=== PATIENT | male | born 1970 | race Caucasian/White ===

== ENCOUNTER 2021-05-15 13:48 | Emergency (ER) | payer OTHER ==
[~2021-05-15 13:48] MED LIST: AMLODIPINE BESY10 MG PO; ASPIRIN EC81 MG PO; ATORVASTATIN CA40 MG PO; BAYER CHEWABLE81 MG PO; CARVEDILOL12.5 MG PO; EFFIENT10 MG PO; ISOSORBIDE MONO30 MG PO; LISINOPRIL40 MG PO; TRULICITY1.5 MG/0.5 SQ; ZESTRIL40 MG PO
[2021-05-15 14:56] LABS: HEMOGLOBIN 15.5 gm/dl (14.0-17.5); RED BLOOD COUNT 4.74 M/UL (4.20-5.50); WHITE BLOOD COUNT 5.1 K/UL (4.5-11.0)
[2021-05-15] MEDS ORDERED: PREDNISONE 20 M20 MG PO (17:22)
[2021-05-15] MEDS ORDERED: VALACYCLOVIR1000 MG PO (17:22)
== END 2021-05-15 17:41 | disposition home or self-care (01) ==
LOC: ER1 13:48
PROVIDERS: Emergency Medicine
DX: G51.0 Bell's palsy (principal); I47.1 Supraventricular tachycardia; I25.10 Atherosclerotic heart disease of native coronary artery without angina pectoris; I10 Essential (primary) hypertension; E11.9 Type 2 diabetes mellitus without complications
CPT/HCPCS: 70450; 70496; 70498; 71045; 80053; 82550; 82553; 83735; 83874; 84100; 84439; 84443; 84484; 85025; 85610; 85730; 93005; 93242; 99284; Q9967

== ENCOUNTER → 2022-05-07 | Outpatient (CLI) | payer OTHER ==
[~2022-05-07] MED LIST changes: +PREDNISONE 20 M20 MG PO; +VALACYCLOVIR1000 MG PO
== END ==
LOC: HEART 5 13:53
DX: R00.2 Palpitations (principal)